=== PATIENT | female | born 1980 | race Caucasian/White ===

== ENCOUNTER → 2020-03-26 | Outpatient (CLI) | payer OTHER ==
[~2020-03-26] MED LIST: ACET-709 PO; CHOL100011 PO; DIAZ2TAB3 PO; ESTR2TAB PO; IBUP200C8 PO; LACT1CAP43 PO; MULT-26 PO; SINCALIDE (KINEVAC) 5 MCG ONE
== END | disposition home or self-care (01) ==
LOC: RAD 11:28
PROVIDERS: ATTEND Internal Medicine Gastroenterology
DX: K59.00 Constipation, unspecified (principal); R10.13 Epigastric pain; R11.2 Nausea with vomiting, unspecified
CPT/HCPCS: 78227; A9537; J2805